=== PATIENT | female | born 1945 | race Caucasian/White ===

== ENCOUNTER → 2016-12-24 | Day surgery (SDC) | payer MEDICARE, OTHER ==
[2016-12-24] VITALS (7 sets, daily range): BP systolic 124–143; BP diastolic 64–80; PULSE 55–65; RESP 10–18; O2SAT 95–98
[~2016-12-24] VITALS: Ht 165.1 cm; Wt 63.5 kg
[~2016-12-24] MED LIST: Atropine 0.4 mg/mL Inj IVPUSH PRN; Dexamethasone 4 mg/mL Inj IVPUSH PRN; EPHEDrine Sulfate 50 mg/mL Inj IVPUSH PRN; EPHEDrine/NS 5 mg/mL 5 mL Syringe ONE; Glycopyrrolate 0.2 MG/ML 1mL Inj ONE; HYDROmorphone 1 mg/mL Inj IVPUSH PRN; LETR2.5T4 PO; Labetalol 5 mg/mL 20 mL Inj IV PRN; Lactated Ringer's 1,000 ML IV ONE; Lactated Ringer's 1,000 ML IV SCH; Lactated Ringer's 500 ML IV PRN; METO50TA3 PO; NAPR220C16 PO; Ondansetron 2 mg/mL 2 mL Inj IVPUSH PRN; Ondansetron 2 mg/mL 2 mL Inj ONE; PRE20 PO; Phenylephrine 10,000 mCg/mL Inj IVPUSH PRN; Propofol 10,000 mCg/mL 20 mL Inj ONE; Remifentanil 1 mg/3 mL Inj ONE; Rocuronium 10 mg/mL 5 mL Inj ONE; Succinylcholine Chloride 20 mg/mL 5 mL Inj ONE; fentaNYL-PF 50 mCg/mL 2 mL Inj IVPUSH PRN; fentaNYL-PF 50 mCg/mL 2 mL Inj ONE; hydrALAZINE 20 mg/mL Inj IVPUSH PRN
--- NOTE | 2016-12-24 07:16 | PCM.HPANE ---
Patient Data Surgeon Admitting Provider: Attending Provider:Ting Mckinney MD Primary Care Physician:Shirin Calderon PA-C Other Provider:Thelma Cabrales Anesthesia Reason for Visit Choledocholithiasis Ht/WT & BMI Body Mass Index Allergies Coded Allergies: latex (Verified Allergy, Severe, burn, 09/27/16) Past Anesthesia History Anesthesia History: Positive for:: Anesthesia Reactions, Denies:: Abnormal Airway, Difficult Intubation, Fam Anesthesia Reaction, Fam Malignant Hypertherm, Malignant Hyperthermia Additional Information: slow to wake up Medications Reported Medications Naproxen Sodium 220 Mg [id number] Mg PO BID PRN For Pain Ref 0 09/27/16 Metoprolol Tartrate 50 Mg [id number] Mg PO DAILY 30 Days Ref 0 09/27/16 Letrozole 2.5 Mg Tablet2.5 Mg PO DAILY Ref 0 09/27/16 Discontinued Reported Medications Prednisone (PredniSONE)20 Mg Tablet PO DIRECTED #10 TABLET Ref 0 take 20mg daily for 10days then, 10mg daily for 20days 09/27/16 History History of ENT Problems?: No HEENT History: Denies:: Abnormal Airway Cataracts Difficult Intubation Dysphagia Glaucoma Hearing Problem Sinus Problem TMJ Denture Type: None Teeth Condition: Within Normal Limits Hx of Heart Problems?: Yes Cardiovascular History: Positive for:: Hypertension Denies:: AICD Abdominal Aortic Aneurism Atrial Fibrillation Cardiac Surgery Chest Pain Congestive Heart Failure Coronary Artery Disease Edema Heart Murmur Irregular Heartbeat Pacemaker Peripheral Vascular Rheumatic Fever Thrombophlebitis Valvular Heart Disease Hx of Respiratory Problem?: No Respiratory History: Denies:: Asthma COPD Chest Surgery Cough Dyspnea Emphysema Hemoptysis Oxygen Administration Pneumonia Pulmonary Embolism Tuberculosis Use of C-PAP Machine Use of Inhalers / NEBS Hx Neurologic Problems?: No Neurological History: Denies:: Alzheimer's Disease CVA Dementia Dizziness Headaches Multiple Sclerosis Parkinson's Disease Peripheral Neuropathy Seizures TIA Hx of GI Problems?: No Gastrointestinal History: Denies:: Cirrhosis Diverticulitis Gall Bladder Disease Gastroesphageal Reflux Gastrointestinal Bleeding Heartburn Hepatitis Hiatal Hernia Liver Disease Rectal Bleeding Hx of Problems?: No Genitourinary History: Denies:: HX of Hemodialysis Kidney Stones Urinary Tract Infection HX of Peritoneal Dialysis: No Female Hx: Denies:: Currently Endometriosis Pelvic Inflammatory Problems with Breasts? Skin History: Denies:: History Skin Disorders? Pressure Ulcers Hx Musculoskeletal Problems?: No Musculoskeletal History: Denies:: Back Injury Degenerative Joint Fibromyalgia Joint Replacement Musculoskeletal Trauma Myasthenia Gravis Osteoarthritis Rheumatoid Arthritis Systemic Lupus Hx of Psycho/Social Problems?: No Psycho Social History: Denies:: Anxiety Bipolar Disorder Hx Depression Suicide Attempt Hx Surgeries?: Yes Other History: Denies:: Cancer Endocrine Disease Hospitalization Thyroid Disease History Blood Transfusions: Denies:: Accept Blood Products? Blood Transfuse Reaction Blood Transfusions Stop/Bang Risk Assessment Category Category 1A: Patient has history of documented sleep apnea, and HAS NOT received any narcotic, sedative or anesthesia administration during this stay. Category 1B: Patient has history of documented sleep apnea, and HAS received any narcotic , sedative or anesthesia administration during this stay Category 2: Patient has SUSPECTED Obstructive Sleep Apnea, and HAS received any narcotic , sedative or anesthesia administration during this stay. Category 3: Patient has SUSPECTED Obstructive Sleep Apnea and HAS NOT received narcotic, sedative or anesthesia administration during this stay. Category 4: Outpatient in Procedural Areas with known sleep apnea or who screen positive for High Risk via the STOP/BANG questionnaire. Exam Exam General Appearance: Alert, Oriented X3, Cooperative, No Acute Distress HEENT/AIRWAY: MP 2, Neck Movement (from), Mouth Opening (wnl) Lungs: Clear to Auscultation Heart: Exam Unremarkable Plan Impression Patient chart reviewed, patient interviewed and anesthestic plan with risks, benefits, and alternatives discussed, and informed consent obtained. ASA Physical Status: ASA1 Normal Healthy Anesthetic Plan: GA Bene/Risks/Altern/Consents: Yes HP Complete Prior to Induction: Yes Umair Adair MD Dec 24, 2016 07:16
--- NOTE | 2016-12-24 15:15 | PCM.ANEP1 ---
Post Anesthesia PACU Phase 1 Assessment Vital Signs Vital Signs Date Time Temp Pulse Resp B/P Pulse Ox O2 Delivery O2 Flow Rate FiO2 12/24/16 15:10 62 16 143/73 95 Room Air 12/24/16 14:59 55 10 137/64 95 Room Air 12/24/16 14:55 36.1 59 10 136/64 96 Room Air 12/24/16 14:50 59 18 125/68 97 Room Air 12/24/16 14:45 61 16 124/65 97 Room Air 12/24/16 14:40 36.3 65 12 126/70 98 Simple Mask 8 12/24/16 11:58 35.9 58 16 140/80 97 Room Air Anesthetic Administered: GA Level of Alertness: Awake, talking MENON's with Equal Strength: Yes Pain: No Nausea or Vomiting: No CV Function & Hydration Stable: Yes Airway Device: Oxygen Delivery: Room Air Lungs: Normal Air Movement PACU Phase 2 Assessment Complications: No Follow up Care: No Patient Instructions Provided: N/A Comments Patient wide awake and talked all the way from ENDO to PACU. 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 Umair Adair MD Dec 24, 2016 15:15
--- NOTE | 2016-12-24 18:23 | DRSVH ---
PROCEDURE: X-RAY E.R.C.P. - BILIARY AND PANCREATIC ([id number]) INDICATIONS: BILIARY STONE EXTRACTION TECHNIQUE: Fluoroscopic spot films were acquired by the gastroenterology service during ERCP procedu re. COMPARISON: None. FINDINGS: Please fluoroscopic films show an endoscope and a wire up in the common duct. Contrast is i njected and shows a defect in the distal common bile duct. Subsequent films show more central biliary tree without other more proximal filling defects. There 2 films show high balloon being used to obta in a stone seen initially. IMPRESSION: Films documenting biliary procedure. Dictated by: Asher Raygoza M.D. on 12/24/2016 at 18:19 Approved by: Asher Raygoza M.D. on 12/24/2016 at 18:21
--- NOTE | 2016-12-25 07:11 | ENDO ---
[address] [address] ENDOSCOPY PROCEDURE PATIENT: EMMANUEL EPPERSON : 1945 MR#: [id number] ADMIT: 12/24/2016 JOB ID: [id number] DATE OF SURGERY: 12/24/2016 PROCEDURE: Endoscopic retrograde cholangiopancreatography. INDICATIONS: The patient with a history of abdominal pain, for which she underwent ultrasound, which revealed a large gallstone, as well as multiple common bile duct stones, and therefore, she has been scheduled her ERCP today. MEDICATIONS: Please see Dr. Umair Adair' anesthesia report for details regarding ASA classification, Mallampati score, and medications. INSTRUMENT USED: [id number]. PROCEDURE DETAILS: After informed consent was obtained, the patient was brought into the GI suite where, after a time-out, she was placed under general anesthesia, and then placed in the standard ERCP position. A bite block was placed. The standard side-viewing duodenoscope was introduced without difficulty to the second portion of the duodenum. Limited endoscopic images of the esophagus, stomach, and examined portions of the duodenum were unremarkable. The ampulla was identified, and appeared to be irritated, as there was erythema and edema. Initial field service tech films were done, which showed no obvious abnormalities. Next, using a [employer], we initially cannulated the pancreatic duct with the wire. This was then removed, and then the catheter was redirected, and we were able to gain access into the bile duct. Initial cholangiogram demonstrated an approximately 10 mm common bile duct. There were two filling defects noted in the distal CBD, that measured approximately 5-6 mm each. The intrahepatics were filled and appeared unremarkable. Filling of the gallbladder was not seen. Next, a moderate-sized sphincterotomy was performed, followed by a balloon sweep which extruded several stones. Final cholangiogram demonstrated no further filling defects. IMPRESSION: Endoscopic retrograde cholangiopancreatography, status post sphincterotomy with balloon sweep, with extraction of multiple stones. RECOMMENDATIONS: 1. Follow up with General Surgery for consultation regarding elective cholecystectomy. 2. Avoid NSAIDs and anticoagulants for five days. 3. Follow up in GI Clinic as needed. COMPLICATIONS: None. ESTIMATED BLOOD LOSS: Less than 5 mL.
== END | disposition home or self-care (01) ==
LOC: END 11:40
PROVIDERS: ATTEND Internal Medicine Gastroenterology
DX: K80.70 Calculus of gallbladder and bile duct without cholecystitis without obstruction (principal); R10.13 Epigastric pain; I10 Essential (primary) hypertension; Z85.3 Personal history of malignant neoplasm of breast; M06.9 Rheumatoid arthritis, unspecified
CPT/HCPCS: 43262; 43264; 74330; J0330; J2405; J2704; J3010; J7120; Q9967